=== PATIENT | female | born 1985 | race Caucasian/White ===

== ENCOUNTER 2021-11-02 05:34 | Inpatient (IN) | payer OTHER ==
[~2021-11-02] VITALS: Ht 162.6 cm; Wt 73.5 kg
[~2021-11-02 05:34] MED LIST: COLACE 100MG C100 MG PO; MAGNESIUM100 MG PO; PRENATAL VITAM1 EAC3 PO; PRENATAL VITAM1 EAC6 PO
[2021-11-02 07:01] LABS: HEMOGLOBIN 12.8 gm/dl (12.3-15.3); RED BLOOD COUNT 4.05 M/UL (4.00-5.10); WHITE BLOOD COUNT 8.3 K/UL (4.5-11.0)
[2021-11-03 07:58] LABS: HEMOGLOBIN 11.9 gm/dl (12.3-15.3)
== END 2021-11-03 15:42 | disposition home or self-care (01) | DRG 806 ==
LOC: OB 05:34
PROVIDERS: ADMIT Obstetrics & Gynecology
PROC: 10E0XZZ Delivery of Products of Conception, External Approach (ICD-10-PCS; principal; 2021-11-02)
PROC: 10907ZC Drainage of Amniotic Fluid, Therapeutic from Products of Conception, Via Natural or Artificial Opening (ICD-10-PCS; 2021-11-02)
PROC: 3E033VJ Introduction of Other Hormone into Peripheral Vein, Percutaneous Approach (ICD-10-PCS; 2021-11-02)
PROC: 4A1H7CZ Monitoring of Products of Conception, Cardiac Rate, Via Natural or Artificial Opening (ICD-10-PCS; 2021-11-02)
PROC: 10H073Z Insertion of Monitoring Electrode into Products of Conception, Via Natural or Artificial Opening (ICD-10-PCS; 2021-11-02)
PROC: 0UH97HZ Insertion of Contraceptive Device into Uterus, Via Natural or Artificial Opening (ICD-10-PCS; 2021-11-02)
DX: O41.03X0 Oligohydramnios, third trimester, not applicable or unspecified (principal); O72.1 Other immediate postpartum hemorrhage; Z37.0 Single live birth; Z20.822 Contact with and (suspected) exposure to COVID-19; O99.892 Other specified diseases and conditions complicating childbirth; G43.909 Migraine, unspecified, not intractable, without status migrainosus; Z28.310 Unvaccinated for COVID-19; Z3A.39 39 weeks gestation of pregnancy; O09.43 Supervision of pregnancy with grand multiparity, third trimester
CPT/HCPCS: 36415; 81001; 85014; 85018; 85025; J2210